=== PATIENT | male | born 1950 | race Caucasian/White ===

== ENCOUNTER → 2019-04-30 08:03 | Outpatient (CLI) | payer MEDICARE, OTHER, SELFPAY ==
--- NOTE | 2019-04-30 | DI.NM.S_ITS ---
PROCEDURE: NM JUANIS PERF SPECT R&S PHARM Rest and pharmacological stress myocardial perfusion SPECT with gated imaging and ejection fraction RADIOPHARMACEUTICAL: 24.3 mCi Tc-99m tetrafosmin IV at rest and 25.4 mCi Tc-99m tetrafosmin IV at peak effect of pharmacological stress. Fqs-wxe-iwsbaoad was performed. INDICATIONS: HTN TECHNIQUE: Radiopharmaceutical was injected at peak stress test, and also at rest. SPECT images were obtained. SPECT myocardial perfusion images were displayed in short axis, horizontal long axis, and vertical long axis views. Gated images were reviewed using kalidea software. COMPARISON: None. CARDIAC STRESS: A pharmacologic stress test was performed under the supervision of an attending staff, using an infusion of lexiscan 0.4mg IV X1. Hemodynamic data: There is normal blood pressure and heart rate response to pharmacologic stress. Symptoms: The patient denied anginal chest pain. Aminophylline: none EKG: No diagnostic changes of ischemia; no ectopy. FINDINGS: Raw data: There is good myocardial uptake of radiotracer. No significant motion artifacts. Jlat-ef-kwldq ratio is 0.35 (normal is less than 0.38 for tetrafosmin tracer). Left ventricle function: Gated images demonstrate hypokinesis of the apex and distal anterior wall and dyssynchrony of the distal septum. No transient ischemic dilation; TID is 0.85 (normal less than 1.3). Left ventricle resting end diastolic volume is 110 mL. Left ventricle stress ejection fraction is 75%; normal range is above 45%. 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 No ischemia. IMPRESSION: Abnormal pharmaceutical nuclear stress test consistent with prior infarct. No ischemia 1) Abnormal perfusion images. 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 No ischemia. 2) Normal left ventricular size and systolic function (EF post stress 75%). There is hypokinesis of the apex and distal anterior wall and dyssynchrony of the distal septum. 3) No ECG evidence of ischemia with lexiscan. 4) No angina during the study. 5) No prior nuclear stress test available for comparison. Dictated by: Roseanna Crowell MD on 05/01/2019 at 16:56 Approved by: Roseanna Crowell MD on 05/01/2019 at 17:01
--- NOTE | 2019-04-30 09:15 | PM.TREADMILL ---
Cardiac Stress Test Report Referral & Results Date Patient Seen: 04/30/19 Time Patient Seen: 09:00 Requesting provider: Lupe Hargrove Indication: HTN Rest ECG: NSR Procedure Note: After both written and verbal informed consent the patient had an IV started by the diagnostic imaging RN and then was hooked up to the treadmill monitoring system. The patient was placed on the treadmill at 1 mile an hour with no elevation and was then injected with the Charito scan material. The Cardiolite was then immediately administered. The patient spent an additional 2-3 minutes on the treadmill before being returned to the [facility] in the supine position. The patient had a normal response to all infused materials. No signs or symptoms of angina during exercise. Impression: Successful Charito protocol. Will await perfusion imaging. Please note: Actual ECG tracings can be found in the PACS system.
== END ==
PROVIDERS: Family Provider Family Medicine; PCP Family Medicine; Visit Provider Internal Medicine Cardiovascular Disease
DX: I25.810 Atherosclerosis of coronary artery bypass graft(s) without angina pectoris (principal); I10 Essential (primary) hypertension; Z95.1 Presence of aortocoronary bypass graft
CPT/HCPCS: 78452; 93016; 93017; 93018; A9502; J2785

== ENCOUNTER 2019-05-08 09:14 | Day surgery (SDC) | payer MEDICARE, OTHER, SELFPAY ==
[2019-05-08] VITALS (7 sets, daily range): BP systolic 93–133; BP diastolic 56–76; PULSE 53–61; RESP 15–22; TEMP 36.3–37.1; O2SAT 94–100; BMI 34.4
--- NOTE | 2019-05-08 | PATH_ITS ---
[facility] Accession Number: [id number] . 01 Material submitted: . duodenum - DUODENAL BIOPSY . 01 Clinical history: . ABNORMAL APPEARING DUODENAL MUCOSA . 02 Diagnosis: Duodenum, Biopsy: Duodenal mucosa with patchy increased intraepithelial lymphocytosis and moderate to severe villous blunting. Please see comment. Patchy gastric surface foveolar metaplasia is also present. Negative for granulomas, dysplasia and malignancy. MRV 05/09/2019 1421 Local . 02 Comment: The findings of duodenal villous blunting and increased intraepithelial lymphocytes are not specific, but raise a consideration of celiac sprue, in the appropriate clinical and serological setting. A definitive diagnosis of celiac sprue requires characteristic histology while on a gluten containing diet and clinical symptomatic improvement on a gluten free diet. Similar morphology can also be seen with certain medications beloning to the class of angiotensin II receptor antagonists (i.e., olmesartan). . 02 Electronically signed: . Amairani Manuel MD, Pathologist NPI- [id number] . 01 Gross description: . DUODENAL BIOPSY: Received in formalin are 3 fragment(s) of davis, soft tissue measuring 0.1 x 0.1 x 0.1 cm to 0.2 x 0.2 x 0.2 cm submitted entirely in 1 cassette(s) /DM 05/09/2019 0004 Local . 02 Pathologist provided ICD-10: K31.89 . 02 CPT . 630738 Performed at: 01 [facility] [address] [address], [place], [place] [id number] MD Conrad Persaud MD Phone: [phone] Performed at: 02 [facility] [address] [place] [id number] MD Amairani Manuel MD Phone: [phone]
--- NOTE | 2019-05-08 11:24 | PM.HP.1 ---
History of Present Illness History of Present Illness Chief complaint: [id number] Patient History Family & Social History Social History: household members spouse Meds Home Medications and Allergies Home Medications Medication Instructions Recorded Confirmed Type aspirin [Aspirin Low Dose] 81 mg PO DAILY 05/08/19 05/08/19 History atorvastatin 80 mg PO QPM 05/08/19 05/08/19 History levothyroxine 137 mcg PO DAILY 05/08/19 05/08/19 History losartan 50 mg PO DAILY 05/08/19 05/08/19 History metformin 1,000 mg PO DAILY 05/08/19 05/08/19 History metoprolol tartrate 25 mg PO DAILY 05/08/19 05/08/19 History timolol 1 % OPHTHALMIC (EYE) DAILY 05/08/19 05/08/19 History Allergies Allergy/AdvReac Type Severity Reaction Status Date / Time No Known Drug Allergies Allergy Verified 05/08/19 09:41 Review of Systems Review of Systems ROS Unobtainable: All systems reviewed & are unremarkable except as noted in HPI and below Exam Vital Signs (past 8 hours): - 05/08/19 09:41 Temperature 97.3 F L Pulse Rate 61 Respiratory Rate 15 Blood Pressure 133/76 Pulse Oximetry 100 Oxygen Delivery Method Room Air Narrative Exam Narrative: Awake alert oriented x3, no acute distress, lungs clear, heart regular rate and rhythm, abdomen nontender and nondistended, no lower extremity edema Assessment & Plan Assessment & Plan narrative: History of submucosal gastric lesion for EGD
--- NOTE | 2019-05-08 11:26 | SUR.OPER ---
GLASSES IN LABELED BAG TO PACU WITH PATIENT
[2019-05-08] MEDS: fentaNYL 250 MCG/5 ML INJ IV (11:39)
[2019-05-08] MEDS: MIDAZOLAM 5 MG/5 ML VIAL IV (11:39)
--- NOTE | 2019-05-08 11:40 | PM.OP.ENDO ---
Operative Date/Time/Diagnoses Date of procedure: 05/08/19 Procedure & Clinicians Study performed: EGD with biopsy Moderate conscious sedation was administered by the endoscopy nurse and supervised by the endoscopist. The following parameters were monitored: Oxygen saturation, heart rate, blood pressure, and response to care. Same procedure as scheduled: Yes Indications: History of submucosal lesion of the stomach Procedure Notes Procedure in detail: Prior to the procedure, history and physical was performed, and patient medications and allergies were reviewed. Preprocedure nursing history and assessment was reviewed. Patient identification and proposed procedure were verified by the physician and nurse in the procedure room. The physical status of the patient was reassessed after the procedure. After informed consent was obtained including risks, benefits, and alternatives, the scope was passed under direct vision. Throughout the procedure, the patient's blood pressure, pulse, and oxygen saturations were monitored continuously. The upper endoscope was introduced through the mouth and advanced to the 2nd portion of the duodenum. Retroflexion was performed in the stomach. The patient tolerated the procedure well. The entire examined esophagus was normal appearing. The Z-line was regular and located at 40 cm. A 2 cm subepithelial lesion was noted at the incisura of the stomach. The stomach was otherwise normal appearing There is erythema in the duodenal bulb. There was diffuse nodularity throughout the 2nd portion of the duodenum. Biopsies were taken from the 2nd portion of the duodenum. Impression: Normal-appearing esophagus and squamocolumnar junction Subepithelial gastric lesion at the incisura. This measured about 2 cm in diameter. Cannot rule out slight increase in size over the past year Based endoscopic evaluation alone. Erythema in the duodenal bulb and diffuse nodularity in the 2nd portion of the duodenum. Biopsies taken from the 2nd portion of the duodenum Sedation minutes: 14 Complications: other (EBL minimal. No complications) Post-procedure Plan for aftercare: Follow-up pathology results Repeat EUS in 6 months for surveillance of the submucosal gastric lesion Resume home medications Resume previous diet Discharge home with escort when discharge criteria met
--- NOTE | 2019-05-08 11:55 | SUR.PHASEI ---
Post procedure Phase I note: patient arrived to PACU at 1138 via stretcher. Sedated and snoring. Allowed to sleep. VSS, O2 sat WNL on 2 L/WAITER AND CASHIER.
== END 2019-05-08 12:32 | disposition home or self-care (01) ==
PROVIDERS: Family Provider Family Medicine; PCP Family Medicine; Visit Provider Internal Medicine
PROC: 0DJ08ZZ Inspection of Upper Intestinal Tract, Via Natural or Artificial Opening Endoscopic (ICD-10-PCS; CPT 43235; principal; 2019-05-08 10:30)
DX: K31.89 Other diseases of stomach and duodenum (principal); E11.9 Type 2 diabetes mellitus without complications; E66.9 Obesity, unspecified; I10 Essential (primary) hypertension; Z79.84 Long term (current) use of oral hypoglycemic drugs; I25.10 Atherosclerotic heart disease of native coronary artery without angina pectoris; Z95.1 Presence of aortocoronary bypass graft; E03.9 Hypothyroidism, unspecified
CPT/HCPCS: 43239; J2250; J3010

== ENCOUNTER → 2020-01-16 12:24 | Outpatient (CLI) | payer MEDICARE, OTHER, SELFPAY ==
--- NOTE | 2020-01-16 12:25 | DI.RAD.S_ITS ---
PROCEDURE: XR LUMBAR SPINE MIN 4V INDICATIONS: lumbsocacral spondylosis TECHNIQUE: 5 views of the lumbar spine were acquired. COMPARISON: None. FINDINGS: Bones: 5 nonrib-bearing vertebrae are present. There is straightening of normal lordosis. Degenerative endplate changes and bilateral facet arthrosis throughout lumbar spine is seen.. No vertebral body compression fractures. No suspicious bony lesions. Soft tissues: Overlying bowel gas pattern is normal. No suspicious soft tissue calcifications. Oblique images: No pars defects. IMPRESSION: Degenerative disc disease throughout lumbar spine. No acute compression fracture or spondylolisthesis. No gross pars defects. Dictated by: Dillon Somers M.D. on 01/16/2020 at 13:32 Approved by: Dillon Somers M.D. on 01/16/2020 at 13:32
== END ==
PROVIDERS: Family Provider Family Medicine; PCP Family Medicine; Referring Provider Family Medicine; Visit Provider Physical Medicine & Rehabilitation
DX: M47.27 Other spondylosis with radiculopathy, lumbosacral region (principal); M51.16 Intervertebral disc disorders with radiculopathy, lumbar region
CPT/HCPCS: 72110

== ENCOUNTER 2022-12-26 21:58 | Emergency (ER) | payer MEDICARE, OTHER, SELFPAY ==
[2022-12-26 22:04] VITALS: BP 160/78; PULSE 63; RESP 18; TEMP 36.6; O2SAT 100; BMI 32.3
--- NOTE | 2022-12-26 22:26 | ED.GENADULT ---
HPI - General Adult General Chief complaint: Abdominal Pain Stated complaint: Hernia Time Seen by Provider: 12/26/22 22:06 Source: patient Mode of arrival: Ambulatory History of Present Illness HPI narrative: Patient is a 72-year-old male with a known history of an umbilical hernia. He is had this for the past 15-20 years. He states he is never had an issue with in the past. He is talked with his primary doctor about it who stated that unless he is having problems there would be no intervention. He states this evening he was standing outside when he sneezed. He states he had almost immediate pain around the area. He also thought that it turned colors. It was tender to touch. He did not tried to reduce it at home. His brought him into the emergency department. EN route here to the ER he states that his symptoms have now completely resolved. Related Data Home Medications Medication Instructions Recorded Confirmed aspirin 81 mg tablet,delayed 81 mg PO DAILY 05/08/19 02/10/20 release (Amita Low Dose Aspirin) atorvastatin 20 mg tablet 80 mg PO QPM 05/08/19 02/10/20 levothyroxine 50 mcg tablet 137 mcg PO DAILY 05/08/19 02/10/20 losartan 25 mg tablet 50 mg PO DAILY 05/08/19 02/10/20 metformin 1,000 mg tablet 1,000 mg PO DAILY 05/08/19 02/10/20 metoprolol tartrate 25 mg tablet 25 mg PO DAILY 05/08/19 02/10/20 timolol 0.5 % eye drops 1 % ophthalmic (eye) DAILY 05/08/19 02/10/20 Previous Rx's Medication Instructions Recorded celecoxib 200 mg capsule (Celebrex) 200 mg PO DAILY #30 caps 04/12/21 Allergies Allergy/AdvReac Type Severity Reaction Status Date / Time No Known Drug Allergies Allergy Verified 02/10/20 11:17 Review of Systems Constitutional Constitutional: Reports system reviewed and no additional complaints, except as documented Gastrointestinal Gastrointestinal: Reports system reviewed and no additional complaints, except as documented Genitourinary Genitourinary: Reports system reviewed and no additional complaints, except as documented Integumentary/Breasts Skin/Breast: Reports system reviewed and no additional complaints, except as documented Patient History Medical History Degenerative joint disease (DJD) of hip Facet arthropathy, lumbar Lumbosacral spondylosis with radiculopathy Surgical History H/O heart bypass surgery Family History Father Hypertension Social History household members: spouse Smoking Status: Never smoker Smoking Status: Never smoker Exam Initial Vital Signs Initial Vital Signs: Vital Signs Temperature 98 F 12/26/22 22:04 Pulse Rate 63 12/26/22 22:04 Respiratory Rate 18 12/26/22 22:04 Blood Pressure 160/78 H 12/26/22 22:04 Pulse Oximetry 100 12/26/22 22:04 Oxygen Delivery Method Room Air 12/26/22 22:04 GI Inspection: normal to inspection and non-distended Other: Patient has a reducible umbilical hernia Skin Other: No skin changes over the umbilical hernia Neuro General: patient alert and patient awake Course Vital Signs Vital signs: Vital Signs - 8 hr 12/26/22 22:04 Temperature 98 F Pulse Rate 63 Respiratory Rate 18 Blood Pressure 160/78 H Pulse Oximetry 100 Oxygen Delivery Method Room Air Medical Decision Making MDM Narrative Medical decision making narrative: Patient does have an umbilical hernia however it is reducible here in the ER. The skin over top of the area appears well. Low suspicion for incarceration or strangulation. No indication for radiologic studies. Will discharge patient home with return precautions. He expressed understanding and agreement with plan. Discharge Plan Departure Patient Disposition: Home Clinical Impression: Umbilical hernia Instructions: DI Umbilical Hernia-Child Activity Restrictions/Additional Instructions: Continue to take all of your medications as directed. Like we discussed if this happens again tried to reduce it at home like we discussed if you are unable to do so then you do need to return to the emergency department for further evaluation. Prescriptions: No Action celecoxib [Celebrex] 200 mg capsule 200 mg PO DAILY Qty: 30 2RF atorvastatin 20 mg Tablet 80 mg PO QPM aspirin [Amita Low Dose Aspirin] 81 mg Tablet,Delayed Release (Dr/Ec) 81 mg PO DAILY levothyroxine 50 mcg Tablet 137 mcg PO DAILY metformin 1,000 mg Tablet 1,000 mg PO DAILY losartan 25 mg Tablet 50 mg PO DAILY timolol 0.5 % Drops 1 % OPHTHALMIC (EYE) DAILY Rx Instructions: pt uses in the right eye metoprolol tartrate 25 mg Tablet 25 mg PO DAILY Referrals: Tom Dunbar MD [Primary Care Provider] - Stand Alone Forms: Patient Portal/API
== END 2022-12-26 22:40 | disposition home or self-care (01) ==
PROVIDERS: Emergency Provider Emergency Medicine; Family Provider Family Medicine; PCP Family Medicine
DX: K42.9 Umbilical hernia without obstruction or gangrene (principal)
CPT/HCPCS: 99281

== ENCOUNTER → 2023-12-18 09:52 | Outpatient (CLI) | payer MEDICARE, OTHER, SELFPAY ==
--- NOTE | 2023-12-18 09:54 | DI.NM.S_ITS ---
PROCEDURE: NM JUANIS PERF SPECT R&S PHARM Rest and pharmacological stress myocardial perfusion SPECT with gated imaging and ejection fraction RADIOPHARMACEUTICAL: 26.9 mCi Tc-99m tetrafosmin IV at rest and 25.4 mCi Tc-99m tetrafosmin IV at peak effect of pharmacological stress. Eou-huh-ccqaemur was performed. INDICATIONS: CAD TECHNIQUE: Radiopharmaceutical was injected at peak stress test, and also at rest. SPECT images were obtained. SPECT myocardial perfusion images were displayed in short axis, horizontal long axis, and vertical long axis views. Gated images were reviewed using [employer] software. COMPARISON: None. CARDIAC STRESS: A pharmacologic stress test was performed under the supervision of an attending staff, using an infusion of regadenoson 0.4 mg IV. Hemodynamic data: There is normal blood pressure and heart rate response to pharmacologic stress. Symptoms: The patient denied anginal chest pain. EKG: No diagnostic changes of ischemia; no ectopy. FINDINGS: Raw data: There is good myocardial uptake of radiotracer. No significant motion artifacts. Xllt-ny-qkdfu ratio is 0.4 (normal is less than 0.38 for tetrafosmin tracer). Left ventricle function: Gated images demonstrate normal left ventricular wall thickening with apical hypokinesis. No transient ischemic dilation; TID is 1.28 (normal less than 1.3). Left ventricle resting end diastolic volume is 77 mL. Left ventricle stress ejection fraction is 70%; normal range is above 45%. Myocardial perfusion: There is a small size, moderate to severe intensity fixed apical defect with yessica-infarct ischemia in the distal anterior wall. IMPRESSION: Abnormal study. There is evidence of apical scar with a very small area of yessica-infarct ischemia in the distal anterior wall. Normal left ventricular size and function with apical hypokinesis. Based on the pharmacologic nuclear stress test 04/30/2019, the patient has a known fixed apical and distal anterior scar. Dictated by: Diana Yepez D.O. on 12/19/2023 at 16:07 Approved by: Diana Yepez D.O. on 12/19/2023 at 16:11
== END ==
PROVIDERS: Family Provider Family Medicine; PCP Family Medicine; Referring Provider Nurse Practitioner; Visit Provider Nurse Practitioner
DX: I25.810 Atherosclerosis of coronary artery bypass graft(s) without angina pectoris (principal); R94.39 Abnormal result of other cardiovascular function study; Z95.1 Presence of aortocoronary bypass graft
CPT/HCPCS: 78452; 93017; A9502; J2785